=== PATIENT | female | born 1980 | race Caucasian/White ===

== ENCOUNTER 2017-11-25 10:21 | Inpatient (IN) | payer BC ==
[2017-11-25] MEDS ORDERED: MISOPROSTOL 200 MCG TAB PR ×2 (11:00→18:30)
[2017-11-25] MEDS ORDERED: METHYLERGONOVINE 0.2 MG INJ IM ×2 (11:00→18:30)
[2017-11-25] MEDS ORDERED: OXYTOCIN 30 UNITS/LR 500 ML IV ×3 (11:00→18:30)
[2017-11-25] MEDS ORDERED: CEFAZOLIN 2 GM/50 ML (PMX) 50 ML IV (11:00)
[2017-11-25] MEDS ORDERED: CARBOPROST 250 MCG INJ IM ×2 (11:00→18:30)
[2017-11-25] MEDS: LACTATED RINGER'S 1,000 ML IV ×3 (11:13→22:29)
[2017-11-25 11:20] LABS: ADD MAN DIFF? NO
[2017-11-25 11:25] LABS: WHITE BLOOD COUNT 8.9 10^3/ul (4.8-10.8)
[2017-11-25 11:25] LABS: BASOPHILS % 0.3 % (0.0-2.0); EOSINOPHILS # 0.2 10^3/ul (0.0-0.5); EOSINOPHILS % 1.8 % (0.0-7.0); HEMATOCRIT 39.4 % (37.0-47.0); HEMOGLOBIN 13.3 g/dl (12.0-16.0); LYMPHOCYTES # 1.5 10^3/ul (0.8-2.9); LYMPHOCYTES % 17.1 % (15.0-51.0); MEAN CORPUSCULAR HEMOGLOBIN 29.3 pg (29.0-33.0); MEAN CORPUSCULAR HGB CONC 33.8 g/dl (32.0-37.0); MEAN CORPUSCULAR VOLUME 86.8 fl (82.0-101.0); MEAN PLATELET VOLUME 10.2 fl (7.4-10.4); MONOCYTE # 0.8 10^3/ul (0.3-0.9); MONOCYTES % 9.4 % (0.0-11.0); NEUTROPHIL # 6.3 10^3/ul (1.6-7.5); NEUTROPHILS % 71.1 % (39.0-77.0); PLATELET COUNT 230 10^3/UL (140-415); RED BLOOD COUNT 4.54 10^6/ul (4.20-5.40); RED CELL DISTRIBUTION WIDTH 17.3 % (11.5-14.5)
[2017-11-25 11:48] LABS: INR 0.85; PROTIME 11.7 Sec (11.9-14.9); PT RATIO 0.9
[2017-11-25] MEDS ORDERED: EPHEDrine SULFATE 50 MG/5 ML SYG (13:39)
[2017-11-25] MEDS ORDERED: morphine SULFATE/PF (10 MG/10 ML) INJ (13:40)
[2017-11-25] MEDS ORDERED: METOCLOPRAMIDE 10 MG INJ (13:40)
[2017-11-25] MEDS ORDERED: OXYTOCIN 10 UNIT INJ ×2 (13:40→14:14)
[2017-11-25] MEDS ORDERED: ONDANSETRON 4 MG INJ (13:40)
[2017-11-25] MEDS ORDERED: BUPIVACAINE 0.75%/DEXT (SPINAL) 2 ML INJ (13:41)
[2017-11-25] MEDS ORDERED: MIDAZOLAM 1 MG/ML 2 ML INJ (14:37)
[2017-11-25 15:05] LABS: RAPID PLASMA REAGIN NONREACTIVE (NR)
[2017-11-25] MEDS ORDERED: EPHEDrine SULFATE 50 MG/5 ML SYG IV (15:30)
[2017-11-25] MEDS ORDERED: NALOXONE (0.4 MG/ML) INJ IV (15:30)
[2017-11-25] MEDS ORDERED: morphine 2 MG INJ IV ×2 (15:30)
[2017-11-25] MEDS ORDERED: ONDANSETRON 4 MG INJ IV ×2 (15:30→18:30)
[2017-11-25] MEDS: morphine SULFATE/PF (10 MG/10 ML) INJ SPINAL (15:30)
[2017-11-25] MEDS ORDERED: DIPHENHYDRAMINE 50 MG INJ IV ×2 (15:30→18:30)
[2017-11-25] MEDS: KETOROLAC 30 MG INJ IV (16:32)
[2017-11-25] MEDS ORDERED: OXYCODONE/ACETAMINOPHEN (5/325) TAB PO (18:30)
[2017-11-25] MEDS ORDERED: ZOLPIDEM 5 MG TAB PO (18:30)
[2017-11-25] MEDS: SENNA/DOCUSATE NA (8.6MG/50MG) TAB PO (21:53)
[2017-11-26] MEDS: LACTATED RINGER'S 1,000 ML IV (06:09)
[2017-11-26] MEDS: KETOROLAC 30 MG INJ IV ×2 (06:09→11:58)
[2017-11-26] MEDS: LANOLIN 7 GM TUBE TOP (06:12)
[2017-11-26 08:28] LABS: ADD MAN DIFF? NO
[2017-11-26 08:30] LABS: BASOPHILS % 0.3 % (0.0-2.0); EOSINOPHILS # 0.1 10^3/ul (0.0-0.5); EOSINOPHILS % 0.5 % (0.0-7.0); HEMATOCRIT 30.9 % (37.0-47.0); HEMOGLOBIN 10.5 g/dl (12.0-16.0); LYMPHOCYTES % 7.9 % (15.0-51.0); MEAN CORPUSCULAR VOLUME 88.3 fl (82.0-101.0); MEAN PLATELET VOLUME 10.2 fl (7.4-10.4); MONOCYTE # 0.9 10^3/ul (0.3-0.9); MONOCYTES % 6.8 % (0.0-11.0); NEUTROPHIL # 11.1 10^3/ul (1.6-7.5); NEUTROPHILS % 84.1 % (39.0-77.0); PLATELET COUNT 186 10^3/UL (140-415); RED CELL DISTRIBUTION WIDTH 17.4 % (11.5-14.5)
[2017-11-26 08:30] LABS: WHITE BLOOD COUNT 13.2 10^3/ul (4.8-10.8)
[2017-11-26] MEDS: SENNA/DOCUSATE NA (8.6MG/50MG) TAB PO ×2 (09:54→21:52)
[2017-11-26] MEDS: IBUPROFEN 600 MG TAB PO ×2 (17:31→23:38)
[2017-11-26] MEDS: OXYCODONE/ACETAMINOPHEN (5/325) TAB PO (21:56)
[2017-11-27] MEDS: IBUPROFEN 600 MG TAB PO ×4 (05:44→23:46)
[2017-11-27] MEDS: SENNA/DOCUSATE NA (8.6MG/50MG) TAB PO ×2 (09:49→20:31)
[2017-11-27] MEDS: OXYCODONE/ACETAMINOPHEN (5/325) TAB PO (20:31)
[2017-11-28 02:08] LABS: HEPATITIS B SURFACE ANTIGEN NEGATIVE (NEGATIVE)
[2017-11-28] MEDS: OXYCODONE/ACETAMINOPHEN (5/325) TAB PO (03:46)
[2017-11-28] MEDS: IBUPROFEN 600 MG TAB PO ×2 (05:29→12:12)
[2017-11-28] MEDS: SENNA/DOCUSATE NA (8.6MG/50MG) TAB PO (09:44)
[2017-11-28] MEDS: DIPHTH/TET/ACEL PERTUSS (ADULT) 0.5 ML VIAL IM* (09:45)
== END 2017-11-28 13:35 | disposition home or self-care (01) | DRG 766 ==
LOC: L-D 10:21 → PP1 18:02
PROVIDERS: Obstetrics & Gynecology
PROC: 10D00Z1 Extraction of Products of Conception, Low, Open Approach (ICD-10-PCS; principal; 2017-11-27)
PROC: 3E0234Z Introduction of Serum, Toxoid and Vaccine into Muscle, Percutaneous Approach (ICD-10-PCS; 2017-11-28)
DX: O34.219 Maternal care for unspecified type scar from previous cesarean delivery (principal); Z3A.39 39 weeks gestation of pregnancy; Z37.0 Single live birth; Z23 Encounter for immunization
CPT/HCPCS: 85025; 85610; 85730; 86592; 86850; 86900; 86901; 87340; 90715; 99464